=== PATIENT | female | born 1980 | race Caucasian/White ===

== ENCOUNTER 2017-03-28 11:33 | Emergency (ER) | payer SELFPAY ==
[~2017-03-28] VITALS: Ht 152.4 cm; Wt 54.5 kg
[2017-03-28 11:34] VITALS: BP 128/79; PULSE 91; RESP 18; TEMP 97.9; O2SAT 99
[2017-03-28] MEDS ORDERED: ALBUAER3 INH (12:10)
[2017-03-28] MEDS ORDERED: PRED20 PO (12:10)
[2017-03-28] MEDS ORDERED: AZIT250T3 PO (12:10)
--- NOTE | 2017-03-28 12:15 | PD ---
HPI Chief Complaint: Cold / Flu Symptoms Time Seen by Provider: 11:58 Travel History International Travel<30 days: No Contact w/Intl Traveler<30days: No Traveled to known affect area: No History of Present Illness HPI 37-year-old female that presents to the ED for evaluation of cold-like symptoms for about a week and a half. Patient has had this for about a week and a half with bad cough. Cough is productive. Per patient she's been using albuterol from a friend and is been helping her but she is concerned that the symptoms are not improving such she came here to get help. She denies any recent travel. No sick contacts at work but nobody that she knows specifically time I have given it to her. No ill sick at home. He states taking OTC meds with some relief. No allergies to medication. Cough is productive. Per patient she does have sensation of rales to her throat. States having some chills but no actual fevers that she can tell. She states having some nausea and vomiting initially with a cough. No abdominal pain. No nausea or vomiting. No other medical issues at this time. She does have a history of asthma as a child and continues to smoke. PFS Past Medical History Anxiety: Yes ?: Not LMP: 03/23/2017 Tubal Ligation: Yes Past Surgical History Abdominal Surgery: Yes (TUBES TIED) Other Surgery: Yes (BREAST) Social History Alcohol Use: Yes Tobacco Use: Yes (5-10) Substance Use: Yes Allergies-Medications (Allergen,Severity, Reaction): Coded Allergies: No Known Allergies (Unverified , 02/04/12) PER PT STATEMENT. Reported Meds & Prescriptions Reported Meds & Active Scripts Active Azithromycin 250 Mg Tab 250 Mg PO DIRECTED Take 2 tabs (500 mg) on day 1 then 1 tab daily x 4 days. Prednisone 20 Mg Tab 20 Mg PO BID 5 Days Proair Hfa 8.5 GM Inh (Albuterol Sulfate) 90 Mcg/Act Aer 2 Puff INH Q4-6H PRN 108 mcg/actuation Review of Systems Except as stated in HPI: all other systems reviewed are Neg Physical Exam Narrative GENERAL: Well-nourished, well-developed patient in no apparent distress. SKIN: Warm and dry. HEAD: Atraumatic. Normocephalic. EYES: Pupils equal and round reactive to light and accommodation. No scleral icterus. No injection or drainage. ENT: No nasal bleeding or discharge. Mucous membranes pink and moist. TMs are clear with no sign of infection or perforation. No mastoid tenderness. Ear canals are intact bilaterally. No lymphadenopathy. Nostril mucosa is red and moist with clear mucus noted. No sinus tenderness to palpation noted. Tonsils are not enlarged or swollen. No ulvua Deviation. Tongue is midline. NECK: Trachea midline. No JVD. No meningeal signs noted CARDIOVASCULAR: Regular rate and rhythm. RESPIRATORY: No accessory muscle use. Mild wheezing with expiration. Breath sounds equal bilaterally. GASTROINTESTINAL: Abdomen soft, non-tender, nondistended. Hepatic and splenic margins not palpable. MUSCULOSKELETAL: Extremities without clubbing, cyanosis, or edema. No obvious deformities. NEUROLOGICAL: Awake and alert. No obvious cranial nerve deficits. Motor grossly within normal limits. Five out of 5 muscle strength in the arms and legs. Normal speech. PSYCHIATRIC: Appropriate mood and affect; insight and judgment normal. Data Data Last Documented VS Vital Signs Date Time Temp Pulse Resp B/P (MAP) Pulse Ox O2 Delivery O2 Flow Rate FiO2 03/28/17 11:34 97.9 91 18 128/79 (95) 99 Room Air MDM Medical Decision Making Medical Screen Exam Complete: Yes Emergency Medical Condition: Yes Medical Record Reviewed: Yes Differential Diagnosis Bronchitis versus sinusitis versus pneumonia versus asthma Narrative Course 37-year-old female that presents to the ED for evaluation of cold-like symptoms. Patient was properly examined and was found to have signs and symptoms consistent appears to be acute bronchitis. Will cover with antibiotic , prednisone and albuterol inhaler as patient does have a history of asthma and had relief with albuterol inhaler from a friend. Patient was told of the importance of quitting smoking. Take OTC medicines as needed. Follow up with PCP. Given note for work. See ED for worsening symptoms. Diagnosis Primary Impression: Bronchitis Patient Instructions: General Instructions Departure Forms: Tests/Procedures, Work Release Special Instructions: Please all the patient to do light duty if possible. They prefer that the patient does not do a lot of walking or running around as she does have bronchitis and this can exacerbate her cough and symptoms. This restriction will be present until April 03, 2017. Additional Instructions: Motrin and Tylenol for pain and fever. You can use [id number] antihistamine as well as well as Mucinex as needed for runny nose and congestion. Cough drops for cough as needed. Drink plenty of fluids. Follow-up with PCP. See ED for worsening symptoms. Med/Other Pt SpecificInfo: Prescription(s) given Scripts Azithromycin (Azithromycin) 250 Mg Tab 250 MG PO DIRECTED for Infection, #6 TAB 0 Refills Take 2 tabs (500 mg) on day 1 then 1 tab daily x 4 days. Prov: Jarvis Tinsley MD 03/28/17 Prednisone (Prednisone) 20 Mg Tab 20 MG PO BID for 5 Days, #10 TAB 0 Refills Prov: Jarvis Tinsley MD 03/28/17 Albuterol 8.5 GM Inh (Proair Hfa 8.5 GM Inh) 90 Mcg/Act Aer 2 PUFF INH Q4-6H Y for SHORTNESS OF BREATH, #1 INHALER 0 Refills 108 mcg/actuation Prov: Jarvis Tinsley MD 03/28/17 Disposition: 01 DISCHARGE HOME Condition: Stable Sidney Harrell Mar 28, 2017 12:15
== END 2017-03-28 12:43 | disposition home or self-care (01) ==
LOC: NEPK 11:33
DX: J40 Bronchitis, not specified as acute or chronic (principal); Z72.0 Tobacco use
CPT/HCPCS: 99283